=== PATIENT | male | born 1970 | race Hispanic/Latino ===

== ENCOUNTER 2023-02-17 17:22 | Inpatient (IN) | payer OTHER ==
[~2023-02-17] VITALS: Ht 177.8 cm; Wt 146.6 kg
[2023-02-17 19:37] LABS: BASOPHILS % (AUTO) 0.6 % (0.0-5.0); EOSINOPHILS % (AUTO) 2.7 % (0.0-8.0); HEMATOCRIT 45.1 % (42-54); LYMPHOCYTES % (AUTO) 25.3 % (21.0-51.0); MEAN CORPUSCULAR HGB CONC 34.6 g/dL (32.0-36.0); MEAN CORPUSCULAR VOLUME 89.5 fL (79-99); MONOCYTES % (AUTO) 8.1 % (3.0-13.0); NEUTROPHILS % (AUTO) 62.6 % (40.0-77.0); PLATELET COUNT (AUTO) 323 K/uL (130-400); RED BLOOD CELL COUNT(AUTO) 5.04 MIL/uL (4.50-6.20); RED CELL DISTRIBUTION WIDTH 11.9 % (11.0-15.5); WHITE BLOOD COUNT (AUTO) 7.1 K/uL (4.8-10.8)
[2023-02-17 19:56] LABS: CREATININE 0.9 mg/dL (0.5-1.5); POTASSIUM 3.7 mmol/L (3.5-5.1)
[2023-02-17 20:03] LABS: ALBUMIN 3.2 g/dL (3.5-5.0); TOTAL PROTEIN, SERUM 7.5 g/dL (6.0-8.3)
[2023-02-17] MEDS ORDERED: VANCOMYCIN 1G/250ML KIT 250 ML IV ONE ×2 (20:11→23:30)
[2023-02-17] MEDS ORDERED: IOHEXOL-350 75 ML VIAL IV ONE (20:33)
[2023-02-17 20:42] LABS: ERYTHROCYTE SEDIMENTATION RATE 27 MM/HR (0-20)
[2023-02-17 20:43] LABS: APPEARANCE,URINE CLEAR (CLEAR); BILIRUBIN,URINE NEGATIVE (NEGATIVE); COLOR,URINE YELLOW (YELLOW); GLUCOSE, URINE (UA) 200 mg/dL (NEGATIVE); KETONES,URINE NEGATIVE (NEGATIVE); LEUKOCYTE ESTERASE ,URINE NEGATIVE Leu/uL (NEGATIVE); NITRATE,URINE NEGATIVE (NEGATIVE); OCCULT BLOOD,URINE NEGATIVE (NEGATIVE); PH,URINE 5.5 (5.0-8.0); PROTEIN,URINE NEGATIVE (NEGATIVE); UROBILINOGEN,URINE 0.2 mg/dL (0.2-1.0)
[2023-02-17 20:55] LABS: BACTERIA,URINE FEW /HPF (None Seen); MUCUS,URINE FEW LPF (None Seen); SQUAMOUS EPITHELIAL CELL,UR FEW /HPF (0-2)
[2023-02-17] MEDS ORDERED: ONDANSETRON 4MG INJ IV PRN (22:30)
[2023-02-17] MEDS ORDERED: MORPHINE 2 MG SYG IV PRN (22:30)
[2023-02-17] MEDS ORDERED: ACETAMINOPHEN 325 MG TAB PO PRN ×2 (22:30)
[2023-02-17] MEDS ORDERED: VANCOMYCIN PROTOCOL PER PHARMACY IV SCH (23:00)
[2023-02-18 07:51] LABS: MEAN CORPUSCULAR HEMOGLOBIN 31.1 pg (27.0-33.0); MEAN CORPUSCULAR VOLUME 91.3 fL (79-99); RED BLOOD CELL COUNT(AUTO) 4.38 MIL/uL (4.50-6.20); RED CELL DISTRIBUTION WIDTH 11.9 % (11.0-15.5); WHITE BLOOD COUNT (AUTO) 7.5 K/uL (4.8-10.8)
[2023-02-18] MEDS: FAMOTIDINE 20MG TAB PO SCH ×2 (07:55→21:11)
[2023-02-18] MEDS ORDERED: VANCOMYCIN 2GM/500 ML BAG 500 ML IV ONE (08:00)
[2023-02-18 08:07] LABS: INR 0.93 (0.85-1.15); PROTHROMBIN TIME 10.3 SEC (9.6-11.6)
[2023-02-18 08:09] LABS: PARTIAL THROMBOPLASTIN TIME 29.2 SEC (26.3-35.5)
[2023-02-18 08:25] LABS: HEMOGLOBIN A1C 7.4 % (4.0-6.0)
[2023-02-18 09:06] LABS: ALBUMIN 2.8 g/dL (3.5-5.0); POTASSIUM 3.4 mmol/L (3.5-5.1); TOTAL PROTEIN, SERUM 6.7 g/dL (6.0-8.3)
[2023-02-18] MEDS: VANCOMYCIN 1G/250ML KIT 250 ML IV SCH (17:02)
[2023-02-18 22:40] VITALS: BP 142/73; PULSE 80; RESP 18
[2023-02-19] VITALS (7 sets, daily range): BP systolic 112–135; BP diastolic 56–69; PULSE 59–78; RESP 16–20; O2SAT 94–96
[2023-02-19] MEDS: VANCOMYCIN 1G/250ML KIT 250 ML IV SCH ×3 (00:52→17:21)
[2023-02-19 07:00] LABS: BASOPHILS % (AUTO) 0.7 % (0.0-5.0); EOSINOPHILS % (AUTO) 3.2 % (0.0-8.0); HEMATOCRIT 38.9 % (42-54); MEAN CORPUSCULAR HGB CONC 33.9 g/dL (32.0-36.0); MEAN CORPUSCULAR VOLUME 91.3 fL (79-99); MONOCYTES % (AUTO) 9.8 % (3.0-13.0); NEUTROPHILS % (AUTO) 62.9 % (40.0-77.0); PLATELET COUNT (AUTO) 271 K/uL (130-400); RED BLOOD CELL COUNT(AUTO) 4.26 MIL/uL (4.50-6.20); WHITE BLOOD COUNT (AUTO) 7.5 K/uL (4.8-10.8)
[2023-02-19 07:19] LABS: ALBUMIN 2.6 g/dL (3.5-5.0); CREATININE 1.1 mg/dL (0.5-1.5); POTASSIUM 3.7 mmol/L (3.5-5.1); TOTAL PROTEIN, SERUM 6.4 g/dL (6.0-8.3)
[2023-02-19] MEDS: FAMOTIDINE 20MG TAB PO SCH ×2 (09:00→19:52)
[2023-02-19] MEDS: ACETAMINOPHEN WITH CODEINE 1 TAB TAB PO PRN (19:54)
[2023-02-20] VITALS: BP 139/78; PULSE 66; RESP 20
[2023-02-20] MEDS: VANCOMYCIN 1G/250ML KIT 250 ML IV SCH ×3 (01:46→16:04)
[2023-02-20 04:00] VITALS: BP 109/72; PULSE 74; RESP 20
[2023-02-20 05:07] LABS: BASOPHILS % (AUTO) 0.6 % (0.0-5.0); EOSINOPHILS % (AUTO) 3.7 % (0.0-8.0); HEMATOCRIT 38.8 % (42-54); LYMPHOCYTES % (AUTO) 26.2 % (21.0-51.0); MEAN CORPUSCULAR HGB CONC 33.5 g/dL (32.0-36.0); MEAN CORPUSCULAR VOLUME 92.4 fL (79-99); MONOCYTES % (AUTO) 9.1 % (3.0-13.0); NEUTROPHILS % (AUTO) 59.9 % (40.0-77.0); PLATELET COUNT (AUTO) 272 K/uL (130-400); RED CELL DISTRIBUTION WIDTH 11.9 % (11.0-15.5); WHITE BLOOD COUNT (AUTO) 8.1 K/uL (4.8-10.8)
[2023-02-20 05:30] LABS: ALBUMIN 2.7 g/dL (3.5-5.0); CREATININE 1.3 mg/dL (0.5-1.5); MAGNESIUM 1.5 mg/dL (1.80-2.40); POTASSIUM 3.5 mmol/L (3.5-5.1); TOTAL PROTEIN, SERUM 6.3 g/dL (6.0-8.3)
[2023-02-20 08:00] VITALS: BP 128/65; PULSE 63; RESP 20; O2SAT 96
[2023-02-20] MEDS ORDERED: MAGNESIUM 2GM PREMIX 50ML 50 ML IV ONE (08:00)
[2023-02-20] MEDS: ASCORBIC ACID 500 MG TAB PO SCH (09:14)
[2023-02-20] MEDS: MULTIVITAMIN TABLET PO SCH (09:14)
[2023-02-20] MEDS: FAMOTIDINE 20MG TAB PO SCH ×2 (09:14→19:53)
[2023-02-20 12:00] VITALS: BP 127/73; PULSE 60; RESP 20
[2023-02-20 16:00] VITALS: BP 146/76; PULSE 72; RESP 20
[2023-02-20 19:00] VITALS: BP 123/62; PULSE 77; RESP 20
[2023-02-20] MEDS ORDERED: KCL 20 MEQ ERTAB PO PRN (19:30)
[2023-02-20] MEDS ORDERED: POTASSIUM CHLORIDE 10% ELIXIR 20 MEQ/15 ML UDCUP PO PRN (19:30)
[2023-02-20] MEDS ORDERED: POTASSIUM CHLORIDE 20MEQ/100ML 100 ML IV PRN (19:30)
[2023-02-20] MEDS: ACETAMINOPHEN WITH CODEINE 1 TAB TAB PO PRN (19:58)
[2023-02-21] VITALS: BP 136/69; PULSE 65; RESP 20
[2023-02-21] MEDS: VANCOMYCIN 1G/250ML KIT 250 ML IV SCH ×3 (00:24→16:46)
[2023-02-21 04:00] VITALS: BP 114/70; PULSE 73; RESP 20
[2023-02-21 05:49] LABS: MAGNESIUM 1.6 mg/dL (1.80-2.40); POTASSIUM 3.6 mmol/L (3.5-5.1)
[2023-02-21 08:00] VITALS: BP 134/75; PULSE 72; RESP 18
[2023-02-21] MEDS: FAMOTIDINE 20MG TAB PO SCH (10:06)
[2023-02-21] MEDS: MULTIVITAMIN TABLET PO SCH (10:06)
[2023-02-21] MEDS: ASCORBIC ACID 500 MG TAB PO SCH (10:06)
[2023-02-21] MEDS ORDERED: AMOX1TAB16 PO (10:24)
[2023-02-21 12:00] VITALS: BP 147/73; PULSE 72; RESP 18
[2023-02-21 16:00] VITALS: BP 153/95; PULSE 71; RESP 18
== END 2023-02-21 19:10 | disposition home or self-care (01) | DRG 580 ==
LOC: EDH 17:22 → EDHIP 17:23 → OBSVTOIN 17:23 → 3DH 02-18 21:38
PROVIDERS: ADMIT Hospitalist; ATTEND Hospitalist
PROC: 0WBF0ZZ Excision of Abdominal Wall, Open Approach (ICD-10-PCS; principal; 2023-02-19)
DX: L03.311 Cellulitis of abdominal wall (principal); Z68.42 Body mass index [BMI] 45.0-49.9, adult; E66.01 Morbid (severe) obesity due to excess calories; S31.131A Puncture wound of abdominal wall without foreign body, left upper quadrant without penetration into peritoneal cavity, initial encounter; R73.9 Hyperglycemia, unspecified; I10 Essential (primary) hypertension; E78.00 Pure hypercholesterolemia, unspecified; X58.XXXA Exposure to other specified factors, initial encounter
CPT/HCPCS: 36415; 71260; 74177; 80053; 80061; 80202; 81001; 83036; 83605; 83735; 84132; 85025; 85027; 85610; 85651; 85730; 87070; 87076; G0378; J2270; J2405; J3370; J3475; Q9967

== ENCOUNTER → 2023-02-28 | Outpatient (CLI) | payer OTHER ==
[~2023-02-28] MED LIST: AMOX1TAB16 PO; LIDOCAINE HCL 4% LTA SOL 4 ML VIAL TP ONE
== END | disposition home or self-care (01) ==
LOC: WHH 09:03
PROVIDERS: ATTEND Nurse Practitioner Family
DX: S31.030A Puncture wound without foreign body of lower back and pelvis without penetration into retroperitoneum, initial encounter (principal); S31.139A Puncture wound of abdominal wall without foreign body, unspecified quadrant without penetration into peritoneal cavity, initial encounter; S31.109A Unspecified open wound of abdominal wall, unspecified quadrant without penetration into peritoneal cavity, initial encounter; I10 Essential (primary) hypertension; E78.00 Pure hypercholesterolemia, unspecified; E66.01 Morbid (severe) obesity due to excess calories; Z68.42 Body mass index [BMI] 45.0-49.9, adult; Z79.899 Other long term (current) drug therapy; X58.XXXA Exposure to other specified factors, initial encounter; W34.00XA Accidental discharge from unspecified firearms or gun, initial encounter; Y93.89 Activity, other specified; Y92.89 Other specified places as the place of occurrence of the external cause; Y99.8 Other external cause status
CPT/HCPCS: 99214; A4450

== ENCOUNTER → 2023-03-07 | Outpatient (CLI) | payer OTHER ==
[~2023-03-07] MED LIST changes: +HONEY 1 APPL/ML TUBE TP ONE
== END | disposition home or self-care (01) ==
LOC: WHH 10:11
PROVIDERS: ATTEND Nurse Practitioner Family
DX: S31.030D Puncture wound without foreign body of lower back and pelvis without penetration into retroperitoneum, subsequent encounter (principal); S31.139D Puncture wound of abdominal wall without foreign body, unspecified quadrant without penetration into peritoneal cavity, subsequent encounter; S31.109D Unspecified open wound of abdominal wall, unspecified quadrant without penetration into peritoneal cavity, subsequent encounter; I10 Essential (primary) hypertension; E78.00 Pure hypercholesterolemia, unspecified; E66.01 Morbid (severe) obesity due to excess calories; Z68.42 Body mass index [BMI] 45.0-49.9, adult; Z79.899 Other long term (current) drug therapy; W34.00XD Accidental discharge from unspecified firearms or gun, subsequent encounter
CPT/HCPCS: 99214

== ENCOUNTER → 2023-03-26 | Outpatient (CLI) | payer OTHER ==
[~2023-03-26] MED LIST changes: -HONEY 1 APPL/ML TUBE TP ONE; -LIDOCAINE HCL 4% LTA SOL 4 ML VIAL TP ONE
== END | disposition home or self-care (01) ==
LOC: WHH 09:21
PROVIDERS: ATTEND Nurse Practitioner Family
DX: S31.030D Puncture wound without foreign body of lower back and pelvis without penetration into retroperitoneum, subsequent encounter (principal); I10 Essential (primary) hypertension; E66.01 Morbid (severe) obesity due to excess calories; Z68.41 Body mass index [BMI] 40.0-44.9, adult; Z79.899 Other long term (current) drug therapy; W34.09XD Accidental discharge from other specified firearms, subsequent encounter
CPT/HCPCS: 99214